=== PATIENT | male | born 1955 | race Caucasian/White ===

== ENCOUNTER 2019-12-29 11:57 | Day surgery (SDC) | payer OTHER ==
[2019-12-29] MEDS ORDERED: Decadron 4 MG INJ IV ONE (11:58)
[2019-12-29] MEDS ORDERED: Sodium Chloride 0.9(Preservative Free) 10 ML IJ ONE (11:58)
[2019-12-29] MEDS ORDERED: Xylocaine 1% Vial 30 ML PF IJ ONE (11:58)
--- NOTE | 2019-12-29 15:11 | XRAY ---
Indication: Cervical GINNY. Intraoperative fluoroscopy was provided for 30 seconds. 2 digital spot images submitted for interpretation demonstrates midline posterior needle tip projecting posterior to the C7-T1 interspace. Small amount of contrast injected for needle tip placement. Correlate with intraoperative findings/report.
--- NOTE | 2019-12-29 15:12 | XRAY ---
30 seconds fluoroscopy time in surgery for cervical GINNY.
[2019-12-29] MEDS ORDERED: Lactated Ringers 1,000 ML IV ONE (15:31)
== END 2019-12-29 15:05 | disposition home or self-care (01) ==
LOC: SDC-PAIN 11:57
PROVIDERS: ATTEND Psychiatry & Neurology Pain Medicine
DX: M54.12 Radiculopathy, cervical region (principal); Z79.899 Other long term (current) drug therapy
CPT/HCPCS: 62321; 72040; 77003; J1100; J2001; Q9966